=== PATIENT | female | born 1985 ===

== ENCOUNTER 2017-08-02 07:15 | Inpatient (IN) ==
[2017-08-02] MEDS: LACTATED RINGERS 1,000 ML IV SCH ×2 (07:30→16:32)
[2017-08-02] MEDS ORDERED: CITRIC ACID/SODIUM CITRATE 30 ML UDCUP PO ONE (07:43)
[2017-08-02] MEDS ORDERED: FAMOTIDINE 20 MG/2 ML VIAL IV ONE (07:43)
[2017-08-02] MEDS ORDERED: OXYTOCIN/LR 20 UNIT/1,000 ML BAG IV ONE ×2 (07:50→11:36)
[2017-08-02 07:59] LABS: Basophils % 0.3 % (0.0-0.8); Eosinophils % 0.5 % (0.00-10.9); Hematocrit 38.3 VOL% (35.7-47.0); Hemoglobin 13.2 GM/DL (12.0-16.0); Immature Granulocytes % 0.5 %; Immature Granulocytes Absolute 0.04 #; Lymphocytes # 2.2 10*3/uL (1.4-4.0); Lymphocytes % 29.2 % (21.3-54.2); Mean Corpuscular HGB Conc 34.5 GM/DL (32-36); Mean Corpuscular Hemoglobin 31 PG (27-34); Mean Corpuscular Volume 90.5 FL (87-102); Mean Platelet Volume 9.4 FL (9.6-12.0); Monocytes # 0.5 10*3/uL (0.11-0.8); Monocytes % 6.4 % (1.7-12.7); Neutrophils # 4.7 10*3/uL (1.4-7.4); Neutrophils % 63.1 % (38.7-73.9); Platelet Count 227 T/CUMM (130-400); Red Blood Count 4.23 MC/CUMM (3.8-5.5); Red Cell Distribution Width 12.8 % (9.3-17.3); White Blood Count 7.5 T/CUMM (4-12)
[2017-08-02] MEDS ORDERED: ceFAZolin 2,000 MG in PREMIX 1 EACH IV ONE (08:00)
[2017-08-02 08:25] LABS: Albumin 2.8 G/DL (3.4-5.0); Bilirubin,Total 0.6 MG/DL (0.2-1.0); Calcium 9.2 MG/DL (8.5-10.1); Osmolality,Calculated 271.7 MOS/KG (273-304); Potassium 4.3 MMOL/L (3.5-5.1); Total Protein 6.9 G/DL (6.4-8.3)
[2017-08-02] MEDS ORDERED: ONDANSETRON 4 MG/2 ML VIAL ONE ×2 (09:00→10:23)
[2017-08-02] MEDS ORDERED: PHENYLEPHRINE 1 MG/10 ML SYRINGE IV ONE ×2 (09:00→10:23)
[2017-08-02] MEDS ORDERED: ACETAMINOPHEN 325 MG TABLET PO PRN (11:36)
[2017-08-02] MEDS ORDERED: RHO(D) IMMUNE GLOBULIN 300 MCG SYRINGE IM ONE (11:36)
[2017-08-02] MEDS ORDERED: MIDAZOLAM 2 MG/2 ML VIAL ONE (11:41)
[2017-08-02] MEDS ORDERED: fentaNYL 100 MCG/2 ML VIAL ONE (11:41)
[2017-08-02] MEDS ORDERED: ePHEDrine 50 MG/ML AMP ONE (11:42)
[2017-08-02] MEDS ORDERED: MORPHINE 10 MG/10 ML VIAL ONE (11:42)
[2017-08-02] MEDS ORDERED: LACTATED RINGERS 1,000 ML IV SCH (12:00)
[2017-08-02 12:29] LABS: Apearance,Urine CLEAR (Clear); Bacteria,Urine Occasional /HPF (Few); Bilirubin,Urine Negative (Negative); Blood, Urine Negative (Negative); Glucose,Urine (UA) Negative (Negative); Ketones,Urine Negative (Negative); Mucus,Urine Occasional /LPF (Occasional); Nitrite,Urine Negative (Negative); Protein,Urine Negative; RBC,Urine 1 /HPF (0-4); Squamous Epithelial Cell,Urine Occasional /HPF (0-10); Urine Color Yellow (Yellow); Urine Specific Gravity 1.009 (1.001-1.035); Urine Urobilinogen < 2.0 EU/DL (0.2-1.0); WBC,Urine <1 /HPF (0-6)
[2017-08-02] MEDS: ONDANSETRON 4 MG/2 ML VIAL IV PRN ×2 (13:45→19:22)
[2017-08-02] MEDS ORDERED: ceFAZolin 1,000 MG in SYRINGE 1 EACH IV SCH ×2 (16:00→22:00)
[2017-08-02] MEDS: ceFAZolin 1,000 MG in SYRINGE 1 EACH IV SCH (19:29)
[2017-08-02 20:07] LABS: Basophils % 0.3 % (0.0-0.8); Eosinophils % 0.2 % (0.00-10.9); Hemoglobin 12.5 GM/DL (12.0-16.0); Immature Granulocytes % 0.4 %; Immature Granulocytes Absolute 0.05 #; Lymphocytes # 1.5 10*3/uL (1.4-4.0); Lymphocytes % 12.8 % (21.3-54.2); Mean Corpuscular HGB Conc 34.7 GM/DL (32-36); Mean Corpuscular Hemoglobin 32 PG (27-34); Mean Corpuscular Volume 91.4 FL (87-102); Mean Platelet Volume 9.2 FL (9.6-12.0); Monocytes # 0.5 10*3/uL (0.11-0.8); Monocytes % 4.6 % (1.7-12.7); Neutrophils # 9.5 10*3/uL (1.4-7.4); Neutrophils % 81.7 % (38.7-73.9); Platelet Count 206 T/CUMM (130-400); Red Blood Count 3.94 MC/CUMM (3.8-5.5); Red Cell Distribution Width 12.8 % (9.3-17.3); White Blood Count 11.6 T/CUMM (4-12)
[2017-08-02] MEDS: DOCUSATE SODIUM 100 MG CAPSULE PO SCH (21:23)
[2017-08-02] MEDS: IBUPROFEN 800 MG TABLET PO PRN (23:01)
[2017-08-03] MEDS: LACTATED RINGERS 1,000 ML IV SCH (00:01)
[2017-08-03] MEDS: ceFAZolin 1,000 MG in SYRINGE 1 EACH IV SCH (03:57)
[2017-08-03 06:33] LABS: Basophils % 0.3 % (0.0-0.8); Eosinophils # 0.1 10*3/uL (0.0-0.87); Eosinophils % 1.3 % (0.00-10.9); Hematocrit 32.7 VOL% (35.7-47.0); Hemoglobin 11.5 GM/DL (12.0-16.0); Immature Granulocytes % 0.4 %; Immature Granulocytes Absolute 0.03 #; Lymphocytes # 2.2 10*3/uL (1.4-4.0); Lymphocytes % 27.8 % (21.3-54.2); Mean Corpuscular HGB Conc 35.2 GM/DL (32-36); Mean Corpuscular Hemoglobin 32 PG (27-34); Mean Corpuscular Volume 90.1 FL (87-102); Mean Platelet Volume 9.3 FL (9.6-12.0); Monocytes # 0.6 10*3/uL (0.11-0.8); Monocytes % 7.3 % (1.7-12.7); Neutrophils # 4.9 10*3/uL (1.4-7.4); Neutrophils % 62.9 % (38.7-73.9); Platelet Count 181 T/CUMM (130-400); Red Blood Count 3.63 MC/CUMM (3.8-5.5); White Blood Count 7.8 T/CUMM (4-12)
[2017-08-03] MEDS: IBUPROFEN 800 MG TABLET PO PRN (07:58)
[2017-08-03] MEDS: DOCUSATE SODIUM 100 MG CAPSULE PO SCH ×2 (09:36→20:07)
[2017-08-03] MEDS: MAGNESIUM HYDROXIDE SUSP 30 ML UDCUP PO PRN ×2 (09:36→20:07)
[2017-08-03] MEDS: SIMETHICONE CHEW 80 MG TABLET PO PRN ×2 (09:36→20:07)
[2017-08-03] MEDS: MULTIVITAMIN (PRENATAL) TABLET PO SCH (09:36)
[2017-08-03] MEDS: ONDANSETRON 4 MG TABLET PO PRN (12:50)
[2017-08-04] MEDS: IBUPROFEN 800 MG TABLET PO PRN ×3 (00:30→17:51)
[2017-08-04] MEDS: ONDANSETRON 4 MG TABLET PO PRN ×2 (06:14→09:53)
[2017-08-04] MEDS: MAGNESIUM HYDROXIDE SUSP 30 ML UDCUP PO PRN ×2 (09:51→22:25)
[2017-08-04] MEDS: DOCUSATE SODIUM 100 MG CAPSULE PO SCH ×2 (09:51→22:25)
[2017-08-04] MEDS: SIMETHICONE CHEW 80 MG TABLET PO PRN ×2 (09:51→22:25)
[2017-08-04] MEDS: MULTIVITAMIN (PRENATAL) TABLET PO SCH (09:51)
[2017-08-05] MEDS: IBUPROFEN 800 MG TABLET PO PRN (06:50)
[2017-08-05] MEDS ORDERED: BISACODYL 10 MG SUPP RECTAL PRN (08:16)
[2017-08-05] MEDS: SIMETHICONE CHEW 80 MG TABLET PO PRN (08:42)
[2017-08-05] MEDS: MAGNESIUM HYDROXIDE SUSP 30 ML UDCUP PO PRN (08:42)
[2017-08-05] MEDS: MULTIVITAMIN (PRENATAL) TABLET PO SCH (08:42)
[2017-08-05] MEDS: DOCUSATE SODIUM 100 MG CAPSULE PO SCH (08:44)
[2017-08-05] MEDS ORDERED: DIPH/TET/ACEL PERT BOOSTER VACCINE 0.5 ML VIAL IM ONE (10:30)
[2017-08-05] MEDS: ONDANSETRON 4 MG TABLET PO PRN (10:34)
[2017-08-05 11:40] VITALS: BP 129/81
== END 2017-08-05 16:00 | disposition home or self-care (01) | DRG 540 ==
LOC: N.LD 07:15 → N.OB 13:59
PROVIDERS: ADMIT Obstetrics & Gynecology; ATTEND Obstetrics & Gynecology
PROC: LDCSECT (ICD-10-PCS; 2017-08-02 09:00)